=== PATIENT | male | born 1945 | race Caucasian/White ===

== ENCOUNTER → 2016-04-28 | Outpatient (CLI) | payer MEDICARE ==
[2015-05-22 12:02] VITALS: BP 111/62
[~2016-04-28] MED LIST: ASPI81TA50 PO; CYAN10005 PO; CYCL10TA2 PO; DOCU-27 PO; GADOBUTROL 10 MMOL/10 ML VIAL IV ONE; HYDR-2672 PO; INSU100I13 SQ; LISI-338 PO; LISI2.5T PO; METF10002 PO; MULT-658 PO; NAPR220C4 PO; SAXA5TAB PO; tumeric
[2016-04-28 13:25] LABS: CREATININE 0.9 mg/dL (0.7-1.3); GFR 82.9
--- NOTE | 2016-04-28 14:08 | RAD ---
PROCEDURE Lumbar spine MRI with and without contrast. HISTORY Lower back pain. TECHNIQUE Multiplanar and multi sequence magnetic resonance imaging of the lumbar spine was performed prior to and following the administration of 9 cc Gadavist intravenous contrast. COMPARISON Correlation is made with the report from a prior MRI dated 03/21/2015. FINDINGS There is instrumented posterior spinal fusion at L4-L5. The instrumentation consists of paired transpedicular screws. There are laminectomy changes at L4-L5 and partial laminectomy changes at L3-L4. There is mild scoliosis. There is grade 1 anterolisthesis of L4 on L5, measuring 6 mm. There is grade 1 anterolisthesis of L3 on L4, measuring 3 mm. There is slight retrolisthesis of T12 on L1, L1 on L2, L2 on L3 and L5 on S1. There is diffuse disc desiccation. There is degenerative endplate remodeling predominately at L5-S1. There are multiple endplate Schmorl's nodes. There are multiple hemangiomas. No suspicious osseous lesion is seen. The conus terminates at L1. At L1-L2, there is a disc bulge and endplate remodeling. There is mild facet arthropathy. There is mild bilateral foraminal stenosis. At L2-L3, there is a suspected shallow left foraminal to extra foraminal disc protrusion superimposed on a disc bulge and endplate remodeling. There is mild facet arthropathy. There is hypertrophy of the ligamentum flavum. There is mild right and dtpm-[id number] left foraminal stenosis. There is mild central canal stenosis. At L3-L4, there is a posterior central to left paracentral disc protrusion with left greater than right paracentral superior disc extrusions. These measure 1.4 cm superior to the disc space within the right paracentral region and 1.9 cm superior to the disc space in the left paracentral region. These are superimposed on a diffuse disc bulge and endplate remodeling. There is severe facet arthropathy. There is hypertrophy of the ligamentum flavum. There is a 9 x 7 x 5 mm peripherally enhancing fluid signal collection within the dorsal central canal adjacent to partial laminectomy changes inferior to the disc space, likely a postoperative seroma with surrounding granulation tissue. There is moderate bilateral foraminal stenosis. There is moderate to severe central canal stenosis. At L4-L5, there is enhancement along the right posterior lateral disc margin likely due to granulation tissue status post microdiscectomy surgery. This is superimposed on a disc bulge and endplate remodeling. There is moderate facet arthropathy. There is instrumented fusion and laminectomy decompression. There is a 2.0 cm fluid collection within the laminectomy decompression space, likely a seroma. There is mild bilateral foraminal stenosis. At L5-S1, there is a disc bulge and endplate osteophytosis. There is jbvw-ri-pjmhryjy left facet arthropathy. There is mild right and gdkp-kl-[id number] left foraminal stenosis. IMPRESSION 1. Instrumented posterior spinal fusion at L4-L5 and laminectomy changes at L3-L4 and L4-L5. There is a 9 mm peripherally enhancing fluid collection within the dorsal central canal at the level of L4. This is likely due to a seroma with surrounding granulation tissue. The possibility of an infected fluid collection is not excluded. There is also a suspected seroma within the laminectomy decompression space at L4-L5. 2. Grade 1 anterolisthesis of L4 on L5, and to a lesser extent, L3 on L4. 3. L3-L4: Left greater than right superior paracentral disc extrusions superimposed on a disc bulge, endplate remodeling, severe facet arthropathy and hypertrophy of the ligamentum flavum, resulting in moderate bilateral foraminal and moderate to severe central canal stenosis. 4. L4-L5: Suspected granulation tissue due to prior microdiscectomy surgery along the right posterior lateral disc margin, superimposed on a disc bulge, endplate remodeling and facet arthropathy. This contributes to mild bilateral foraminal stenosis. 5. Multilevel degenerative change throughout the remainder of the lumbar spine, resulting in stenosis as described above. Electronically signed by: Bee Lester (Apr 28, 2016 14:06:40)
== END | disposition home or self-care (01) ==
LOC: MRI 12:17
PROVIDERS: ATTEND Neurological Surgery
DX: M54.16 Radiculopathy, lumbar region (principal); M48.06 Spinal stenosis, lumbar region
CPT/HCPCS: 36415; 72158; 82565; A9585

== ENCOUNTER → 2016-05-21 | Outpatient (CLI) | payer MEDICARE ==
[2015-05-22 12:02] VITALS: BP 111/62
[~2016-05-21] MED LIST changes: +FERR220S3 PO; -GADOBUTROL 10 MMOL/10 ML VIAL IV ONE
--- NOTE | 2016-05-21 14:27 | EKG ---
[facility] [address] [place] [address] Test Date: 2016-05-21 Test Time: 14:27:47 Pat Name: SARAH MCPHERSON Department: Room: Gender: Cloud Operations Engineer: NELLK : 1945 Requested By: ERLINDA SENIOR Order Number: [id number] Reading MD: Jessika Benito Measurements Intervals [place] Rate: 75 P: 52 CT: 154 QRS: 12 QRSD: 82 T: 31 QT: 346 QTc: 389 Interpretive Statements SINUS RHYTHM NORMAL ECG RI6.01 No previous ECG available for comparison Electronically Signed On 05-24-2016 18:42:06 CDT by Jessika Benito
[2016-05-21 14:29] LABS: BASO # 0.1 x10^3/uL (0.0-0.2); BASO % 1 % (0-3); EOS % 3 % (0-3); HEMATOCRIT 44.1 % (39.0-53.0); HEMOGLOBIN 14.6 g/dL (13.0-17.5); LYMPH # 1.6 x10^3/uL (1.0-4.8); LYMPH % 23 % (24-48); MEAN CORPUSCULAR HEMOGLOBIN 30 pg (25-35); MEAN CORPUSCULAR HGB CONC 33 g/dL (31-37); MEAN CORPUSCULAR VOLUME 91 fL (79-100); MONO % 10 % (0-9); NEUT % 63 % (31-73); PLATELET COUNT 169 x10^3/uL (140-400); RED BLOOD COUNT 4.83 x10^6/uL (4.30-5.70); RED CELL DISTRIBUTION WIDTH 13.5 % (11.5-14.5)
[2016-05-21 14:35] LABS: INR 1.1 (0.8-1.1); PROTHROMBIN TIME PATIENT 13.5 SEC (11.7-14.0)
[2016-05-21 14:58] LABS: ALBUMIN 3.6 g/dL (3.4-5.0); ALBUMIN/GLOBULIN RATIO 1.2 (1.0-1.7); CALCIUM 9.5 mg/dL (8.5-10.1); CREATININE 0.9 mg/dL (0.7-1.3); GFR 82.9; POTASSIUM 4.3 mmol/L (3.5-5.1); TOTAL BILIRUBIN 0.3 mg/dL (0.2-1.0); TOTAL PROTEIN 6.7 g/dL (6.4-8.2)
--- NOTE | 2016-05-22 15:44 | HP ---
ADMIT DATE: Sylvester Rose dictating for Dr. Ervin Senior. DATE OF SURGERY: 05/27/2016 HISTORY OF PRESENT ILLNESS: The patient is a pleasant 71-year-old in April 2015 underwent a decompression, which include laminectomy at L3-L4 and L4-L5 combined with posterior instrumented fusion at L4-L5. He did well from that surgery and then beginning several months ago, he noted increasing lower back pain primarily on the left side along with intermittent pain in his left hip. The problem is aggravating for him and it interferes with his activities. He rates his pain at a 5/10. Standing and walking markedly increases his pain. Hot tub and exercise seem to help with him. He takes Aleve. He had epidural steroid injections with no benefit. PAST MEDICAL HISTORY: Artificial left knee, epilepsy/seizure, hypertension, tumors/growth. PAST SURGICAL HISTORY: Craniotomy in , left knee replacement in 2013, lumbar laminectomy L3-L4 and L4-L5, instrumented interbody fusion L4-L5 in April 2015. SOCIAL HISTORY: . Retired. Exercises 3 times per week. Drinks alcohol once daily. Denies tobacco use. FAMILY HISTORY: Diabetes. ALLERGIES: SULFA DRUGS. CURRENT MEDICATIONS: Metformin, Lantus, lisinopril. REVIEW OF SYSTEMS: A 12-point review of systems was obtained and is noncontributory except that mentioned above. PHYSICAL EXAMINATION: NEUROLOGIC: His strength is 5/5 and his sensory testing is intact to light touch with trace reflexes. Straight leg raising was negative bilaterally. There is normal gait. There was tenderness in the lower lumbar spine on the left side of the midline and over the left iliac crest region. IMAGING: Reviewed. I reviewed the lumbar MRI scan. On that study, the grade 1 anterolisthesis at L4-L5 is well seen. There is mild bilateral foraminal narrowing at this level. At L3-L4, there is left greater than right superior paracentral disk extrusion, especially on the left side result in significant stenosis at this level. ASSESSMENT: He has developed a disk protrusion stenosis at L3-L4. I recommended lumbar surgery to perform a diskectomy, decompress the region and instrument and fuse. I did discuss this with him in detail. He would like to go ahead. We will make the arrangements. ERVIN SENIOR MD DR: YUDITH/pio JOB#: [id number] / [id number]
== END | disposition home or self-care (01) ==
LOC: SURGPAT 13:26
PROVIDERS: ATTEND Neurological Surgery
DX: Z01.812 Encounter for preprocedural laboratory examination (principal)
CPT/HCPCS: 36415; 80053; 83036; 85027; 85610; 85730; 87641; 93005

== ENCOUNTER 2016-05-27 05:57 | Inpatient (IN) | payer MEDICARE ==
[2016-05-27] VITALS (12 sets, daily range): BP systolic 102–132; BP diastolic 52–71
[~2016-05-27] VITALS: Ht 185.4 cm; Wt 87.6 kg
[2016-05-27] MEDS ORDERED: CEFAZOLIN 2GM PREMIX 50 ML IV PRN (06:00)
[2016-05-27] MEDS: IV RINGERS,LACTATED 1000ML 1,000 ML IV SCH ×2 (06:51→16:17)
[2016-05-27] MEDS ORDERED: PROCHLORPERAZINE 10 MG/2 ML VIAL. IV PRN (07:00)
[2016-05-27] MEDS ORDERED: FENTANYL PF 100 MCG/2 ML VIAL. IV PRN ×3 (07:00→13:30)
[2016-05-27] MEDS ORDERED: LIDOCAINE 1% 1 ML SYRINGE. ID PRN (07:00)
[2016-05-27] MEDS ORDERED: ONDANSETRON PF 4 MG/2 ML VIAL. IV PRN ×3 (07:00→13:31)
[2016-05-27] MEDS ORDERED: GELATIN SPONGE SIZE 100. ONE (07:09)
[2016-05-27] MEDS ORDERED: THROMBIN 20,000 UNIT SPRAY.SYRN KIT TP ONE (07:09)
[2016-05-27] MEDS ORDERED: KETOROLAC 60 MG/2 ML INJ FOR OR. ONE (07:09)
[2016-05-27] MEDS ORDERED: BUPIVAC MPF-EPI 0.5%-1:200000 30 ML VIAL. ONE (07:09)
[2016-05-27] MEDS ORDERED: MINERAL OIL/PETROLATUM,WHITE OPHTH OINT 3.5GM TUBE. ONE (07:51)
[2016-05-27] MEDS ORDERED: PROPOFOL 50 ML IV ONE ×2 (07:51→11:34)
[2016-05-27] MEDS ORDERED: DESFLURANE > 120 MINUTES IH ONE ×2 (07:51→14:05)
[2016-05-27] MEDS ORDERED: DEXAMETHASONE SOD PHOS 20 MG/5 ML VIAL. ONE (07:51)
[2016-05-27] MEDS ORDERED: MIDAZOLAM HCL/PF 2 MG/2 ML VIAL. ONE (07:51)
[2016-05-27] MEDS ORDERED: ONDANSETRON PF 4 MG/2 ML VIAL. ONE (07:51)
[2016-05-27] MEDS ORDERED: 0.9 % SODIUM CHLORIDE 50 ML VIAL. IJ ONE (07:51)
[2016-05-27] MEDS ORDERED: PROPOFOL 20 ML IV ONE (07:51)
[2016-05-27] MEDS ORDERED: LIDOCAINE 2% 100 MG/5 ML SYRINGE. ONE (07:51)
[2016-05-27] MEDS ORDERED: ROCURONIUM 50 MG/5 ML VIAL. ONE (07:52)
[2016-05-27] MEDS ORDERED: FENTANYL PF 100 MCG/2 ML VIAL. ONE (07:52)
[2016-05-27] MEDS ORDERED: REMIFENTANIL 2 MG VIAL. IV ONE (07:52)
[2016-05-27] MEDS ORDERED: PHENYLEPHRINE 10 MG/ML VIAL. ONE (09:09)
[2016-05-27] MEDS: BACITRACIN 50,000 UNIT in IV NORMAL SALINE 1000ML BAG 1,000 ML IRR ONE ×2 (09:20→10:17)
[2016-05-27] MEDS ORDERED: GLYCOPYRROLATE 1 MG/5 ML VIAL. ONE (09:47)
[2016-05-27] MEDS ORDERED: CEFAZOLIN 1GM IVPB FOR OMNI 50 ML IV ONE (12:41)
[2016-05-27] MEDS ORDERED: REMIFENTANIL 1 MG VIAL. IV ONE (12:42)
[2016-05-27] MEDS ORDERED: DIPHENHYDRAMINE HCL 25 MG CAPSULE PO PRN (13:30)
[2016-05-27] MEDS ORDERED: ACETAMINOPHEN 325 MG TABLET. PO PRN (13:30)
[2016-05-27] MEDS ORDERED: 0.9 % SODIUM CHLORIDE 10 ML DISP.SYRIN. IV PRN (13:30)
[2016-05-27] MEDS ORDERED: MAG HYDROX/ALUMINUM HYD/SIMETH 30 ML ORAL.SUSP PO PRN (13:30)
[2016-05-27] MEDS ORDERED: CALCIUM CARBONATE 500 MG TAB.CHEW PO PRN (13:30)
[2016-05-27] MEDS ORDERED: DIPHENHYDRAMINE 50 MG/ML VIAL. IV PRN (13:30)
[2016-05-27] MEDS ORDERED: MAGNESIUM HYDROXIDE 2,400 MG/30 ML ORAL.SUSP. PO PRN (13:30)
[2016-05-27] MEDS ORDERED: DEXTROSE 50% 25 GM / 50ML DISP.SYRIN. IV PRN (13:30)
[2016-05-27] MEDS ORDERED: CEFAZOLIN 2GM PREMIX 50 ML IV ONE (14:13)
[2016-05-27] MEDS ORDERED: NEOMY/BACITR/POLYMYXIN OINT PACKET. TP ONE (15:01)
[2016-05-27] MEDS: FENTANYL PF 100 MCG/2 ML VIAL. IV PRN ×2 (15:09→15:55)
[2016-05-27] MEDS: FERROUS SULFATE 325 MG TABLET. PO SCH (17:07)
[2016-05-27] MEDS: METFORMIN 1,000 MG TABLET PO SCH (17:07)
[2016-05-27] MEDS: HYDROCODONE/APAP 10/325 TABLET. PO PRN ×2 (17:12→23:16)
[2016-05-27] MEDS: POTASSIUM CL 20MEQ-0.45% NACL 1,000 ML IV SCH (17:16)
[2016-05-27] MEDS: DOCUSATE SODIUM 100 MG CAPSULE. PO SCH (20:51)
[2016-05-27] MEDS: METHOCARBAMOL 750 MG TABLET PO SCH (20:51)
[2016-05-27] MEDS: CYANOCOBALAMIN (VITAMIN B-12) 1,000 MCG TABLET. PO SCH (20:52)
[2016-05-27] MEDS: INSULIN DETEMIR 300 UNITS/3 ML INSULN.PEN. SQ SCH (20:57)
[2016-05-27] MEDS: CEFAZOLIN SODIUM 1 GM in IV NORMAL SALINE 50ML 50 ML IV SCH (22:04)
[2016-05-28 03:30] VITALS: BP 116/56
[2016-05-28] MEDS: POTASSIUM CL 20MEQ-0.45% NACL 1,000 ML IV SCH ×2 (04:20→17:40)
[2016-05-28 06:23] VITALS: BP 118/68
[2016-05-28] MEDS: CEFAZOLIN SODIUM 1 GM in IV NORMAL SALINE 50ML 50 ML IV SCH ×2 (06:25→13:50)
[2016-05-28] MEDS: HYDROCODONE/APAP 10/325 TABLET. PO PRN ×4 (06:51→23:51)
[2016-05-28] MEDS: METFORMIN 1,000 MG TABLET PO SCH ×2 (07:47→16:56)
[2016-05-28] MEDS: MULTIVITAMIN with MINERAL TABLET. PO SCH (07:48)
[2016-05-28] MEDS: METHOCARBAMOL 750 MG TABLET PO SCH ×3 (07:48→21:10)
[2016-05-28] MEDS: ASPIRIN ENTERIC COATED 81 MG TABLET.DR. PO SCH (07:48)
[2016-05-28] MEDS: DOCUSATE SODIUM 100 MG CAPSULE. PO SCH ×2 (07:48→21:10)
[2016-05-28] MEDS: LINAGLIPTIN 5 MG TABLET PO SCH (07:49)
[2016-05-28] MEDS: LISINOPRIL 5 MG TABLET. PO SCH (09:00)
[2016-05-28 11:20] VITALS: BP 112/57
[2016-05-28] MEDS: FERROUS SULFATE 325 MG TABLET. PO SCH (16:56)
[2016-05-28 18:31] VITALS: BP 132/68
[2016-05-28] MEDS: CYANOCOBALAMIN (VITAMIN B-12) 1,000 MCG TABLET. PO SCH (21:10)
[2016-05-28] MEDS: INSULIN DETEMIR 300 UNITS/3 ML INSULN.PEN. SQ SCH (21:14)
[2016-05-28 23:30] VITALS: BP 121/73
[2016-05-29 03:27] VITALS: BP 120/70
[2016-05-29 06:30] VITALS: BP 114/64
[2016-05-29] MEDS: HYDROCODONE/APAP 10/325 TABLET. PO PRN ×2 (06:32→14:04)
[2016-05-29] MEDS ORDERED: NEOMY/BACITR/POLYMYXIN OINT PACKET. TP PRN (08:15)
[2016-05-29] MEDS: MULTIVITAMIN with MINERAL TABLET. PO SCH (08:18)
[2016-05-29] MEDS: ASPIRIN ENTERIC COATED 81 MG TABLET.DR. PO SCH (08:18)
[2016-05-29] MEDS: DOCUSATE SODIUM 100 MG CAPSULE. PO SCH (08:18)
[2016-05-29] MEDS: LINAGLIPTIN 5 MG TABLET PO SCH (08:18)
[2016-05-29] MEDS: METHOCARBAMOL 750 MG TABLET PO SCH ×2 (08:18→14:04)
[2016-05-29] MEDS: METFORMIN 1,000 MG TABLET PO SCH (08:18)
[2016-05-29] MEDS: LISINOPRIL 5 MG TABLET. PO SCH (08:19)
[2016-05-29 11:20] VITALS: BP 116/59
[2016-05-29 13:10] LABS: HEMATOCRIT 39.4 % (39.0-53.0)
--- NOTE | 2016-05-29 13:20 | PDOC ---
PROGRESS NOTES Subjective Subjective POD #2 back/ incision pain leg pain improved ambulated in singh with PT, BP dropped to 80's systolic Objective Objective Vital Signs Date Time Temp Pulse Resp B/P Pulse Ox O2 Delivery O2 Flow Rate FiO2 05/29/16 11:20 98.0 83 16 116/59 94 Room Air 98.0 05/27/16 20:15 2.0 Intake and Output 05/29/16 07:00 Intake Total 1320 ml Balance 1320 ml Intake Oral 1320 ml # Voids 5 Physical Exam General: Alert, Oriented X3, Cooperative, No acute distress MUSCULOSKELETAL: Other (CRAIN) Skin: Other (dressing dry and intact) Assessment Assessment Problems Medical Problems: (1) Lumbar stenosis Status: Acute Plan Plan of Care will check H and H possible dc later today Comment Review of Relevant I have reviewed the following items adan (where applicable) has been applied. Labs Laboratory Tests Test 05/27/16 14:58 05/27/16 16:47 05/27/16 20:50 05/28/16 06:28 Glucose (Fingerstick) 182mg/dL (70-99) 208mg/dL (70-99) 272mg/dL (70-99) 123mg/dL (70-99) Test 05/28/16 11:20 05/28/16 16:50 05/28/16 21:10 05/29/16 06:38 Glucose (Fingerstick) 149mg/dL (70-99) 149mg/dL (70-99) 174mg/dL (70-99) 103mg/dL (70-99) Test 05/29/16 13:00 Hemoglobin 13.0g/dL (13.0-17.5) Hematocrit 39.4% (39.0-53.0) Laboratory Tests Test 05/28/16 16:50 05/28/16 21:10 05/29/16 06:38 05/29/16 13:00 Glucose (Fingerstick) 149mg/dL (70-99) 174mg/dL (70-99) 103mg/dL (70-99) Hemoglobin 13.0g/dL (13.0-17.5) Hematocrit 39.4% (39.0-53.0) Medications Current Medications Bacitracin/Sodium Chloride (Bacitracin/Iv Sodium Chloride 0.9% 1000ml Bag) 1, 000 ml @ 1,000 mls/hr 1X PERIOP ONCE IRR Last administered on 05/27/16 10:17 ; Start 05/27/16 at 06:00; Stop 05/27/16 at 06:59; Status DC Ondansetron HCl (Zofran) 0.4 mg PRN Q6HRS PRN IV NAUSEA/VOMITING; Start at 07:00; Stop 05/27/16 at 13:31; Status DC Fentanyl Citrate (Fentanyl 2ml Vial) 25 mcg PRN Q5MIN PRN IV MILD PAIN; Start 05/27/16 at 07:00; Stop 05/27/16 at 18:00; Status DC Fentanyl Citrate 50 mcg 50 mcg PRN Q5MIN PRN IV MODERATE PAIN Last administered on 05/27/16 15:55; Start 05/27/16 at 07:00; Stop 05/27/16 at 18:00; Status DC Lactated Ringer's (Iv Lactated Ringers) 1,000 ml @ 30 mls/hr Q24H IV Last administered on 05/27/16 16:17; Start 05/27/16 at 07:00; Stop 05/27/16 at 18:59; Status DC Lidocaine HCl 2 ml PRN 1X PRN ID PRIOR TO IV START; Start 05/27/16 at 07:00; Stop 05/27/16 at 15:00; Status DC Prochlorperazine Edisylate 5 mg 5 mg PACU PRN PRN IV NAUSEA, MRX1 Last administered on 05/27/16 15:09; Start 05/27/16 at 07:00; Stop 05/27/16 at 18:00; Status DC Cefazolin Sodium/ Dextrose (Ancef 2gm Premix) 50 ml @ 100 mls/hr 1X PREOP PRN IV PRIOR TO PROCEDURE Last administered on 05/27/16 09:15; Start 05/27/16 at 06: 00; Stop 05/27/16 at 13:32; Status DC Bupivacaine HCl/ Epinephrine Bitart (Sensorcain-Mpf Epi 0.5%-1:[id number]) 30 ml STK -MED ONCE .ROUTE Last administered on 05/27/16 10:17; Start 05/27/16 at 07:09; Stop 05/27/16 at 07:10; Status DC Gelatin (Gelfoam Size 100) 1 each STK-MED ONCE .ROUTE Last administered on 05/27 10:17; Start 05/27/16 at 07:09; Stop 05/27/16 at 07:10; Status DC Ketorolac Tromethamine (Toradol For Or Only) 60 mg STK-MED ONCE .ROUTE Last administered on 05/27/16 10:17; Start 05/27/16 at 07:09; Stop 05/27/16 at 07:10; Status DC Thrombin 20,000 unit STK-MED ONCE TP Last administered on 05/27/16 10:17; Start 05/27/16 at 07:09; Stop 05/27/16 at 07:10; Status DC Dexamethasone Sodium Phosphate (Decadron) 20 mg STK-MED ONCE .ROUTE ; Start 05/27 at 07:51; Stop 05/27/16 at 07:52; Status DC Ondansetron HCl 4 mg 4 mg STK-MED ONCE .ROUTE ; Start 05/27/16 at 07:51; Stop 05/27/16 at 07:52; Status DC Propofol 50 ml @ As Directed STK-MED ONCE IV ; Start 05/27/16 at 07:51; Stop 05/27 at 07:52; Status DC Propofol (Diprivan) 20 ml @ As Directed STK-MED ONCE IV ; Start 05/27/16 at 07:51 ; Stop 05/27/16 at 07:52; Status DC Lidocaine HCl (Lidocaine HCl 2% Abboject) 100 mg STK-MED ONCE .ROUTE ; Start 05/27/16 at 07:51; Stop 05/27/16 at 07:52; Status DC Multi-Ingred Cream/Lotion/Oil/ Oint (Artificial Tears Eye Oint) 7 vera STK-MED ONCE .ROUTE ; Start 05/27/16 at 07:51; Stop 05/27/16 at 07:52; Status DC Sodium Chloride (Sodium Chloride) 50 ml STK-MED ONCE IJ ; Start 05/27/16 at 07:51 ; Stop 05/27/16 at 07:52; Status DC Desflurane (Suprane) 90 ml STK-MED ONCE IH ; Start 05/27/16 at 07:51; Stop at 07:52; Status DC Midazolam HCl (Versed) 2 mg STK-MED ONCE .ROUTE ; Start 05/27/16 at 07:51; Stop 05/27/16 at 07:52; Status DC Fentanyl Citrate (Fentanyl 2ml Vial) 100 mcg STK-MED ONCE .ROUTE ; Start at 07:52; Stop 05/27/16 at 07:53; Status DC Remifentanil HCl (Ultiva) 2 mg STK-MED ONCE IV ; Start 05/27/16 at 07:52; Stop at 07:53; Status DC Rocuronium [place] (Zemuron) 50 mg STK-MED ONCE .ROUTE ; Start 05/27/16 at 07:52 ; Stop 05/27/16 at 07:53; Status DC Phenylephrine HCl (Jez-Synephrine Inj) 10 mg STK-MED ONCE .ROUTE ; Start at 09:09; Stop 05/27/16 at 09:10; Status DC Aspirin (Ecotrin) 81 mg DAILY PO Last administered on 05/29/16 08:18; Start 05/28/16 at 09:00 Cyanocobalamin (Vitamin B-12) 2,500 mcg HS PO Last administered on 05/28/16 21: 10; Start 05/27/16 at 21:00 Lisinopril (Prinivil) 5 mg DAILY PO Last administered on 05/29/16 08:19; Start 05/28/16 at 09:00 Metformin HCl (Glucophage) 1,000 mg BIDWMEALS PO Last administered on 05/29/16 08:18; Start 05/27/16 at 17:00 Ferrous Sulfate (Feosol) 325 mg QPM PO Last administered on 05/28/16 16:56; Start 05/27/16 at 18:00 Insulin Detemir (Levemir) 42 units QHS SQ Last administered on 05/28/16 21:14; Start 05/27/16 at 21:00 Multivitamins (Thera M Plus) 1 tab DAILY PO Last administered on 05/29/16 08:18 ; Start 05/28/16 at 09:00 Linagliptin (Tradjenta) 5 mg DAILY PO Last administered on 05/29/16 08:18; Start 05/28/16 at 09:00 Non-Formulary Medication 500 mg BID .ROUTE ; Start 05/27/16 at 21:00; Status UNV Dextrose (Dextrose 50%-Water Syringe) 12.5 gm PRN Q15MIN PRN IV SEE COMMENTS; Start 05/27/16 at 13:30 Fentanyl Citrate (Fentanyl 2ml Vial) 25 mcg PRN Q1HR PRN IV PAIN; Start at 13:30 Fentanyl Citrate (Fentanyl 2ml Vial) 50 mcg PRN Q1HR PRN IV PAIN Last administered on 05/27/16 17:12; Start 05/27/16 at 13:30 Acetaminophen (Tylenol) 650 mg PRN Q6HRS PRN PO MILD PAIN / TEMP; Start at 13:30 Al Hydroxide/Mg Hydroxide (Mylanta Plus Xs) 30 ml PRN Q3HRS PRN PO HEARTBURN / GAS; Start 05/27/16 at 13:30 Calcium Carbonate/ Glycine (Tums) 500 mg PRN Q3HRS PRN PO INDIGESTION; Start at 13:30 Diphenhydramine HCl (Benadryl) 25 mg PRN Q6HRS PRN PO ITCHING; Start 05/27/16 at 13:30 Diphenhydramine HCl (Benadryl) 25 mg PRN Q6HRS PRN IV ITCHING; Start 05/27/16 at 13:30 Sodium Chloride 3 ml 3 ml QSHIFT PRN IV AFTER MEDS AND BLOOD DRAWS; Start at 13:30 Potassium Chloride/Sodium Chloride (KCl 20 Meq-0.45% Nacl) 1,000 ml @ 75 mls/ hr [id number] IV Last administered on 05/27/16 17:16; Start 05/27/16 at 15:00; Stop 05/28/16 at 21:16; Status DC Methocarbamol (Robaxin) 750 mg TID PO Last administered on 05/29/16 08:18; Start 05/27/16 at 21:00 Docusate Sodium (Colace) 100 mg BID PO Last administered on 05/29/16 08:18; Start 05/27/16 at 21:00 Magnesium Hydroxide (Milk Of Magnesia) 2,400 mg PRN Q12HR PRN PO CONSTIPATION; Start 05/27/16 at 13:30 Ondansetron HCl 4 mg 4 mg PRN Q6HRS PRN IV NAUESA, 1ST CHOICE; Start 05/27/16 at 13:30 Cefazolin Sodium/ Sodium Chloride (Ancef/Iv Sodium Chloride 0.9% 50ml) 50 ml @ 100 mls/hr Q8H IV Last administered on 05/28/16 13:50; Start 05/27/16 at 22:00; Stop 05/28/16 at 14:29; Status DC Acetaminophen/ Hydrocodone Bitart (Lortab 10/325) 1 tab PRN Q6HRS PRN PO PAIN Last administered on 05/29/16 06:32; Start 05/27/16 at 13:30 Acetaminophen/ Hydrocodone Bitart (Lortab 10/325) 2 tab PRN Q6HRS PRN PO PAIN Last administered on 05/28/16 23:51; Start 05/27/16 at 13:30 Ondansetron HCl (Zofran) 4 mg PRN Q6HRS PRN IV NAUSEA/VOMITING; Start 05/27/16 at 13:31; Stop 05/27/16 at 18:00; Status DC Glycopyrrolate 1 mg 1 mg STK-MED ONCE .ROUTE ; Start 05/27/16 at 09:47; Stop 05/27 at 13:41; Status DC Propofol 50 ml @ As Directed STK-MED ONCE IV ; Start 05/27/16 at 11:34; Stop 05/27 at 13:43; Status DC Cefazolin Sodium (Ancef 1gm Ivpb For Omni) 50 ml @ As Directed STK-MED ONCE IV ; Start 05/27/16 at 12:41; Stop 05/27/16 at 13:44; Status DC Remifentanil HCl (Ultiva) 1 mg STK-MED ONCE IV ; Start 05/27/16 at 12:42; Stop at 13:44; Status DC Desflurane 90 ml 90 ml STK-MED ONCE IH ; Start 05/27/16 at 14:05; Stop 05/27/16 at 14:06; Status DC Cefazolin Sodium/ Dextrose (Ancef 2gm Premix) 50 ml @ As Directed STK-MED ONCE IV ; Start 05/27/16 at 14:13; Stop 05/27/16 at 14:14; Status DC Neomycin/ Polymyxin/ Bacitracin (Triple Antibiotic Ointment) 1 pkt STK-MED ONCE TP ; Start 05/27/16 at 15:01; Stop 05/27/16 at 15:02; Status DC Neomycin/ Polymyxin/ Bacitracin (Triple Antibiotic Ointment) 1 pkt PRN BID PRN TP ABRASION Last administered on 05/29/16t 08:26; Start 05/29/16 at 08:15 Active Scripts Active Reported Ferrous Sulfate 220 Mg/5 Ml Elixir 65 Mg PO EVENING [tumeric] 500 Mg BID Aleve (Naproxen Sodium) 220 Mg Capsule 2 Tab PO DAILY Onglyza (Saxagliptin Hcl) 5 Mg Tablet 1 Tab PO DAILY Lisinopril 5 Mg Tablet 1 Tab PO EVENING Vitamin B-12 (Cyanocobalamin (Vitamin B-12)) 1,000 Mcg Tablet 2,500 Mcg PO HS last dose last night next dose tonight at bedtime Centrum Silver Tablet (Multivits-Min/Fa/Lycopene/Lut) 1 Each Tablet 1 Each PO DAILY not given in hospital may resume when ready Aspir-Low (Aspirin) 81 Mg Tablet.dr 1 Tab PO DAILY last dose this am next dose tomorrow am Lantus Solostar (Insulin Glargine,Hum.rec.anlog) 100 Unit/1 Ml Insuln.pen 42 Unit SQ HS last dose last night next dose tonight Metformin Hcl 1,000 Mg Tablet 1 Tab PO BID last dose this am next dose with supper Vitals/I & O Vital Sign - Last 24 Hours 05/28/16 05/28/16 05/28/16 05/28/16 17:58 18:31 19:15 19:56 Temp 98.0 98.0 Pulse 79 Resp 18 18 B/P 132/68 Pulse Ox 99 99 O2 Delivery Room Air Room Air Room Air 05/28/16 05/28/16 05/29/16 05/29/16 23:30 23:51 00:52 03:12 Temp 98.8 98.8 Pulse 79 Resp 18 18 B/P 121/73 Pulse Ox 94 94 O2 Delivery Room Air Room Air Room Air Room Air 05/29/16 05/29/16 05/29/16 05/29/16 03:27 06:30 06:32 07:35 Temp 98.1 98.5 98.1 98.5 Pulse 81 88 Resp 17 18 18 B/P 120/70 114/64 Pulse Ox 95 93 95 O2 Delivery Room Air Room Air Room Air Room Air 05/29/16 05/29/16 05/29/16 08:00 08:19 11:20 Temp 98.0 98.0 Pulse 88 83 Resp 16 B/P 110/58 116/59 Pulse Ox 94 O2 Delivery Room Air Room Air Intake and Output 05/28/16 05/28/16 05/29/16 15:00 23:00 07:00 Intake Total 540 ml 180 ml 600 ml Balance 540 ml 180 ml 600 ml MARC RUTHERFORD RF [employer] ENGINEER May 29, 2016 13:20
--- NOTE | 2016-05-29 14:57 | HP ---
ADMIT DATE: 05/27/2016 Sylvester Rose dictating for Dr. Ervin Senior. DATE OF SURGERY: 05/27/2016 HISTORY OF PRESENT ILLNESS: The patient is a pleasant 71-year-old in April 2015 underwent a decompression, which include laminectomy at L3-L4 and L4-L5 combined with posterior instrumented fusion at L4-L5. He did well from that surgery and then beginning several months ago, he noted increasing lower back pain primarily on the left side along with intermittent pain in his left hip. The problem is aggravating for him and it interferes with his activities. He rates his pain at a 5/10. Standing and walking markedly increases his pain. Hot tub and exercise seem to help with him. He takes Aleve. He had epidural steroid injections with no benefit. PAST MEDICAL HISTORY: Artificial left knee, epilepsy/seizure, hypertension, tumors/growth. PAST SURGICAL HISTORY: Craniotomy in , left knee replacement in 2013, lumbar laminectomy L3-L4 and L4-L5, instrumented interbody fusion L4-L5 in April 2015. SOCIAL HISTORY: . Retired. Exercises 3 times per week. Drinks alcohol once daily. Denies tobacco use. FAMILY HISTORY: Diabetes. ALLERGIES: SULFA DRUGS. CURRENT MEDICATIONS: Metformin, Lantus, lisinopril. REVIEW OF SYSTEMS: A 12-point review of systems was obtained and is noncontributory except that mentioned above. PHYSICAL EXAMINATION: NEUROLOGIC: His strength is 5/5 and his sensory testing is intact to light touch with trace reflexes. Straight leg raising was negative bilaterally. There is normal gait. There was tenderness in the lower lumbar spine on the left side of the midline and over the left iliac crest region. IMAGING: Reviewed. I reviewed the lumbar MRI scan. On that study, the grade 1 anterolisthesis at L4-L5 is well seen. There is mild bilateral foraminal narrowing at this level. At L3-L4, there is left greater than right superior paracentral disk extrusion, especially on the left side result in significant stenosis at this level. ASSESSMENT: He has developed a disk protrusion stenosis at L3-L4. I recommended lumbar surgery to perform a diskectomy, decompress the region and instrument and fuse. I did discuss this with him in detail. He would like to go ahead. We will make the arrangements. ERVIN SENIOR MD DR: YUDITH/pio JOB#: [id number] / [id number]
[2016-05-29 15:10] VITALS: BP 94/55
[2016-05-29] MEDS ORDERED: METH-38 PO (16:04)
[2016-05-29] MEDS ORDERED: HYDR-2672 PO (16:05)
--- NOTE | 2016-06-01 15:06 | PATHOLOGY ---
PATHOLOGY REPORT * * * * * * * * FINAL DIAGNOSIS: Segments of fibrocartilaginous, fibroadipose, and skeletal muscle tissue and bone, lumbar decompression and disc: - Degenerative changes of fibrocartilaginous tissue. - Focal foreign body granulomatous and chronic inflammation. COMMENT: There is no evidence of an acute inflammatory process or malignancy. (JPM:csd; d/t: 06/01/2016) REPORT ELECTRONICALLY SIGNED BY: Florencio Shin M.D. DATE/TIME: 06/01/2016 15:05 * * * * * * * * GROSS PATHOLOGY: Received in formalin labeled "Mikie Mcpherson - lumbar decompression and disc," are multiple segments of white-zaragoza to pink-zaragoza, rubbery and gritty tissue admixed with possible bone, measuring 6.8 x 4.5 x 1.8 cm in aggregate dimensions. The tissue is submitted representatively in cassette A1, following decalcification. (TTL:JPM:csd; 05/29/2016) INITIAL CPT CODE(S): A; 06880, 97350 Professional services performed [place] [facility] [place] [address] Technical services performed by [facility] at [address] [place] [address]. SPECIMEN(S) RECEIVED: A.Lumbar decompression and disc CLINICAL HISTORY: Herniated disc, stenosis PATIENT: MIKIE MCPHERSON /AGE: 1 1945 (Age: 71) PATIENT #: [id number] ALT CASE #: SPECIMEN COLLECTION DATE: 05/27/2016 SPECIMEN RECEIVED DATE: 05/28/2016 [facility] - [address] [place] [address] - PHONE: [phone] * * * END OF REPORT * * *
--- NOTE | 2016-06-03 21:06 | OP ---
DATE OF SURGERY: 05/27/2016 PREOPERATIVE DIAGNOSES: Herniated lumbar disk, L3-L4 central and left with lumbar spinal stenosis. POSTOPERATIVE DIAGNOSES: Herniated lumbar disk, L3-L4 central and left with lumbar spinal stenosis. OPERATION PERFORMED: Reop hemilaminotomy and microdiskectomy at L3-L4, left. The operation was done with EMG monitoring, fluoroscopy and microscopic dissection. UTILITY ASSEMBLER: Austyn Simmons M.D. assisted with the surgery, assisted with the exposure, the microdiskectomy as well as the closure. OPERATIVE INDICATIONS: The patient is a very pleasant 71-year-old man who last year underwent lumbar microsurgery with a decompression at L3-L4 and L4-L5 combined with an instrumented fusion at L4-L5 and did well from that surgery. He then developed significant pain in a neurogenic claudication type pattern and the above-mentioned findings were found and after failing conservative measures, I recommended lumbar microsurgery to remove the herniated disk and decompress the region. He understood the rationale for the surgery, the risks. He understood that it might be possible that we would have to remove some of his hardware in order to gain access and he wished to go ahead. DESCRIPTION OF PROCEDURE: Following general endotracheal anesthesia, the patient was positioned prone on the Gabe table. His lumbar region was prepped and draped in standard fashion. HONG hose and AV impulse boots were applied for DVT prophylaxis. The microscope was draped. Fluoroscopy was draped and brought into the field. Ancef 2 grams was given less than 1 hour prior to initiation of the surgery. I might note that Austyn Simmons M.D., assisted with the surgery, assisted with the exposure, the microdiskectomy as well as the closure. At any rate, an incision was made using fluoroscopic guidance directly over the L3-L4 interspace. I dissected down through the skin and subcutaneous tissue and reflected the paraspinal muscles and placed a Napoleon micro disk retractor, brought in the microscope and the remainder of surgery done with a microscope using microscopic technique. I used a long curette to expose the edges of his previous hemilaminotomy and then brought in the high speed air drill and again through the microscope I enlarged the hemilaminotomy significantly medially, superiorly and inferiorly as well as laterally. I felt the edges of ligamentum flavum, which was residual and I freed this up and began to peel this away. In some areas, the ligament was densely scarred to the dura and other areas, I was able to peel this away and I was able to work and create an exposure in to the disk space and enlarged his previous partial foraminotomy. I freed up the dura and nerve roots and gently retracted this medially. There was a large subligamentous disk in multiple fragments and I began to tease back and remove multiple disk fragments. I entered the disk space and performed a diskectomy with pituitary rongeurs and then sweeping superiorly, medially and inferiorly, I was able to remove large quantities of disk material and fully decompress the entire region. At the end of the operation, the nerve root was quite free throughout its course and I performed a generous diskectomy, enlarged his hemilaminotomy superiorly and medially and inferiorly and enlarged his foraminotomy. I had fully decompressed the entire region. I did use small amounts of bone wax as well as bipolar cautery wherever it was necessary. I irrigated copiously, removed the retractor and obtained hemostasis in the muscle and then I closed the wound with absorbable suture and the skin was closed with 4-0 subcuticular stitch. Operation went very well and the patient was taken to recovery room in excellent condition. I was quite pleased with the surgery. ERLINDA SENIOR MD DR: YUDITH/pio JOB#: [id number] / [id number]
== END 2016-05-29 16:30 | disposition home or self-care (01) | DRG 520 ==
LOC: OPSVCIP 05:57 → 4 SOUTHEST 16:19
PROVIDERS: ADMIT Neurological Surgery; ATTEND Neurological Surgery
PROC: 0SB20ZZ Excision of Lumbar Vertebral Disc, Open Approach (ICD-10-PCS; 2016-05-27)
PROC: 01NB0ZZ Release Lumbar Nerve, Open Approach (ICD-10-PCS; principal; 2016-05-27 08:30)
DX: M51.26 Other intervertebral disc displacement, lumbar region (principal); M48.06 Spinal stenosis, lumbar region; Z83.3 Family history of diabetes mellitus; Z96.652 Presence of left artificial knee joint; G40.909 Epilepsy, unspecified, not intractable, without status epilepticus; I10 Essential (primary) hypertension; Z88.2 Allergy status to sulfonamides; Z88.8 Allergy status to other drugs, medicaments and biological substances; Z91.048 Other nonmedicinal substance allergy status
CPT/HCPCS: 36415; 76000; 82947; 85014; 85018; 86850; 86900; 86901; 88304; 88311; C1713; J0690; J0780; J1100; J1815; J1885; J2250; J2405; J2704; J3010; J3490; J7030; J7120; 97110; 97116; 97530